=== PATIENT | male | born 1960 | race Caucasian/White ===

== ENCOUNTER 2016-12-18 08:39 | Emergency (ER) | payer OTHER ==
[2016-12-18] MEDS ORDERED: NITROGLYCERIN 0.4 MG TAB SL ONE (08:45)
[2016-12-18] MEDS ORDERED: ASPIRIN 81 MG CHEWABLE CTB ONE (08:45)
[2016-12-18] MEDS ORDERED: SODIUM CHLORIDE 0.9% FLUSH 10 ML SOL IV PRN (08:54)
[2016-12-18] MEDS ORDERED: NITROGLYCERIN 0.4 MG TAB SL PRN (08:54)
[2016-12-18] MEDS ORDERED: ASPIRIN 81 MG CHEWABLE CTB PO STA (08:54)
[2016-12-18 08:58] LABS: BASOPHILS % (AUTO) 1 % (0-3); EOSINOPHILS % (AUTO) 4 % (0-9); HEMATOCRIT 45 % (39-53); MEAN CORPUSCULAR VOLUME 88 fL (80-100); MONOCYTES % (AUTO) 9.5 % (0-12); NEUTROPHILS % (AUTO) 53.6 % (37-80)
[2016-12-18 09:02] VITALS: TEMP 98.8
[2016-12-18 09:15] LABS: CALCIUM 8.8 mg/dl (8.5-10.1); GLOM FILT RATE 59 mL/min (>60); POTASSIUM 3.9 mMol/L (3.5-5.1); SODIUM 144 mMol/L (136-145)
[2016-12-18] MEDS ORDERED: LIDOCAINE HCL 2% (VISCOUS) 20 ML SOL MT ONE (09:27)
[2016-12-18] MEDS ORDERED: ALUMINUM/MAGNESIUM 30 ML SUS PO ONE (09:27)
[2016-12-18] MEDS ORDERED: LIDOCAINE HCL 2% (VISCOUS) 20 ML SOL ONE (09:28)
[2016-12-18] MEDS ORDERED: ALUMINUM/MAGNESIUM 30 ML SUS ONE (09:28)
[2016-12-18] MEDS ORDERED: KETOROLAC TROMETHAMINE 30 MG/ML SOL IV ONE (10:27)
[2016-12-18] MEDS ORDERED: SODIUM CHLORIDE 0.9% 1000ML 1,000 ML IV ONE (10:28)
[2016-12-18] MEDS ORDERED: KETOROLAC TROMETHAMINE 30 MG/ML SOL ONE (10:29)
[2016-12-18 11:13] VITALS: O2SAT 100
[2016-12-18 11:57] VITALS: BP 159/82; PULSE 35; RESP 16
== END 2016-12-18 12:00 | disposition short-term general hospital (02) ==
LOC: ED 08:39
DX: R00.1 Bradycardia, unspecified (principal)
CPT/HCPCS: 99285 ×3; 80048; 84484; 85025; 93005; J1885; 71010

== ENCOUNTER 2018-02-05 10:24 | Emergency (ER) | payer OTHER ==
[2018-02-05 10:54] VITALS: RESP 16; TEMP 97
[2018-02-05] MEDS ORDERED: SODIUM CHLORIDE 0.9% FLUSH 10 ML SOL IV PRN (10:54)
[2018-02-05] MEDS ORDERED: NITROGLYCERIN 0.4 MG TAB SL PRN ×2 (10:54→12:33)
[2018-02-05 10:58] LABS: BASOPHILS % (AUTO) 1 % (0-3); EOSINOPHILS % (AUTO) 4 % (0-9); HEMATOCRIT 44 % (39-53); LYMPHOCYTES % (AUTO) 28.8 % (10-50); MEAN CORPUSCULAR HEMOGLOBIN 25.9 pg (27.0-32.0); MEAN CORPUSCULAR HGB CONC 31.4 gm/dl (32.0-36.0); MEAN CORPUSCULAR VOLUME 83 fL (80-100); MONOCYTES % (AUTO) 8.2 % (0-12); NEUTROPHILS % (AUTO) 57.3 % (37-80)
[2018-02-05 11:09] LABS: INR 1.1 (0.86-1.12)
[2018-02-05 11:11] LABS: BLOOD UREA NITROGEN 23 mg/dl (7-18); CALCIUM 8.5 mg/dl (8.5-10.1); CHLORIDE 105 mMol/L (98-107); CREATINE KINASE 109 U/L (39-308); CREATININE 1.27 mg/dl (0.80-1.30); GLUCOSE 91 mg/dl (74-106); SODIUM 142 mMol/L (136-145); TROP I < 0.017 ng/ml (0.000-0.056)
[2018-02-05 11:15] LABS: CARBON DIOXIDE 32.9 mEq/L (21-32); POTASSIUM 3.6 mMol/L (3.5-5.1)
[2018-02-05] MEDS ORDERED: ALUMINUM/MAGNESIUM 30 ML SUS PO ONE (11:38)
[2018-02-05] MEDS ORDERED: LIDOCAINE HCL 2% (VISCOUS) 20 ML SOL PO ONE (11:38)
[2018-02-05] MEDS ORDERED: ALUMINUM/MAGNESIUM 30 ML SUS ONE (11:39)
[2018-02-05] MEDS ORDERED: LIDOCAINE HCL 2% (VISCOUS) 20 ML SOL ONE (11:39)
[2018-02-05] MEDS ORDERED: KETOROLAC TROMETHAMINE 30 MG/ML SOL IV ONE (11:54)
[2018-02-05] MEDS ORDERED: KETOROLAC TROMETHAMINE 30 MG/ML SOL ONE (12:00)
[2018-02-05] MEDS: SODIUM CHLORIDE 0.9% 1000ML 1,000 ML IV SCH ×2 (12:05→13:00)
[2018-02-05] MEDS ORDERED: NITROGLYCERIN 0.4 MG TAB SL ONE (12:36)
[2018-02-05 13:46] LABS: CREATININE 1.12 mg/dl (0.80-1.30); TROP I 0.019 ng/ml (0.000-0.056)
[2018-02-05 14:32] VITALS: BP 129/74; PULSE 53; O2SAT 99
== END 2018-02-05 14:30 | disposition home or self-care (01) ==
LOC: ED 10:24
DX: R07.1 Chest pain on breathing (principal); R00.1 Bradycardia, unspecified; R07.89 Other chest pain
CPT/HCPCS: 36415; 71045; 80048; 82550; 82565; 84484; 85025; 85610; 85730; 93005; 96365; 96374; 99284; 99285; J1885; A9270-GY

== ENCOUNTER 2018-07-27 09:54 | Emergency (ER) | payer BC, OTHER ==
[2018-07-27 10:15] VITALS: TEMP 97.5
[2018-07-27 10:28] LABS: BASOPHILS % (AUTO) 1 % (0-3); EOSINOPHILS % (AUTO) 2 % (0-9); HEMATOCRIT 47 % (39-53); HEMOGLOBIN 14.6 gm/dl (13.5-17.7); LYMPHOCYTES % (AUTO) 25.3 % (10-50); MEAN CORPUSCULAR HEMOGLOBIN 25.9 pg (27.0-32.0); MEAN CORPUSCULAR HGB CONC 31.2 gm/dl (32.0-36.0); MEAN CORPUSCULAR VOLUME 83 fL (80-100); MONOCYTES % (AUTO) 8.8 % (0-12)
[2018-07-27 10:42] LABS: INR 1.07 (0.86-1.12)
[2018-07-27 10:45] LABS: ALBUMIN 4.1 gm/dl (3.4-5.0); BILIRUBIN,TOTAL 0.6 mg/dl (0.2-1.0); CALCIUM 8.5 mg/dl (8.5-10.1); CARBON DIOXIDE 31.6 mEq/L (21-32); CREATININE 1.28 mg/dl (0.80-1.30); POTASSIUM 3.4 mMol/L (3.5-5.1); TOTAL PROTEIN 7.6 gm/dl (6.4-8.2)
[2018-07-27] MEDS ORDERED: METOPROLOL TARTRATE 25 MG TAB PO ONE (11:33)
[2018-07-27] MEDS ORDERED: LORAZEPAM 0.5 MG TAB PO ONE (11:33)
[2018-07-27] MEDS ORDERED: LORAZEPAM 0.5 MG TAB ONE (12:17)
[2018-07-27] MEDS ORDERED: METOPROLOL TARTRATE 25 MG TAB ONE (12:18)
[2018-07-27 13:23] VITALS: RESP 16
[2018-07-27 13:25] VITALS: BP 153/99; PULSE 52; O2SAT 99
== END 2018-07-27 12:50 | disposition home or self-care (01) ==
LOC: ED 09:54
DX: R51 Headache (principal); R20.0 Anesthesia of skin; I10 Essential (primary) hypertension
CPT/HCPCS: 70450; 70553; 80053; 85025; 85610; 99284; 99291; Q9957; A9270-GY

== ENCOUNTER 2019-02-02 07:17 | Day surgery (SDC) | payer BC | END 2019-02-02 11:33 | disposition home or self-care (01) | LOC: SURG 07:17 ==